=== PATIENT | female | born 1970 | race Caucasian/White ===

== ENCOUNTER 2018-04-12 05:45 | Day surgery (SDC) | payer OTHER ==
[2018-04-11 12:43] VITALS: BMI 24.2
[2018-04-12] MEDS ORDERED: Ciprofloxacin 0.2% Otic ONE (06:54)
[2018-04-12] MEDS ORDERED: Lidocaine 1% w/Epinephrine 1:100K 30 ML VIAL ONE (08:51)
[2018-04-12] MEDS ORDERED: Fentanyl 100 MCG/2 ML VIAL ONE (09:47)
[2018-04-12] MEDS ORDERED: Hydrocodone-Acetamin 15 ML UDCUP ONE (12:35)
[2018-04-12] MEDS ORDERED: Lidocaine 1% PF 5 ML VIAL ONE (12:36)
[2018-04-12] MEDS ORDERED: Ondansetron HCl/PF 4 MG/2 ML Vial ONE (12:36)
[2018-04-12] MEDS ORDERED: PROPOFOL 200 MG/20 ML VIAL ONE (12:36)
--- NOTE | 2018-04-13 10:47 | OP ---
DATE OF PROCEDURE: 04/12/2018 PREOPERATIVE DIAGNOSES: 1. Right tympanic membrane perforation. 2. Right conductive hearing loss. POSTOPERATIVE DIAGNOSES: 1. Right tympanic membrane perforation. 2. Right conductive hearing loss. PROCEDURES: Right fat graft myringoplasty. SURGEON: Misael Vázquez M.D. ESTIMATED BLOOD LOSS: 0 mL. COMPLICATIONS: None. ANESTHESIA: LMA. PROCEDURE: The patient was taken to the operating room. LMA anesthesia was obtained. The right ear was then prepped and draped in standard surgical fashion. The operating microscope was brought in t he field. A 20% posterior central perforation was visualized, middle ear mucosa was noted to be heal thy today. The edges of the perforation were rimmed with a Castillo needle and straight cup forceps. F ollowing this, a small incision was made in the posterior aspect of the right earlobe and an approxim ately 1 cm piece of fat was harvested. The wound was then closed using gut stitches. The fat was th en placed in a dumbbell-type fashion within the tympanic membrane perforation. The patient tolerated the procedure well.
== END 2018-04-12 13:03 | disposition home or self-care (01) ==
LOC: SDC 05:45
PROVIDERS: ATTEND Otolaryngology Plastic Surgery within the Head & Neck
PROC: 09U707Z Supplement Right Tympanic Membrane with Autologous Tissue Substitute, Open Approach (ICD-10-PCS; principal; 2018-04-12)
DX: H72.91 Unspecified perforation of tympanic membrane, right ear (principal); H90.2 Conductive hearing loss, unspecified; G40.909 Epilepsy, unspecified, not intractable, without status epilepticus; G43.909 Migraine, unspecified, not intractable, without status migrainosus; Z87.891 Personal history of nicotine dependence; Z79.899 Other long term (current) drug therapy
CPT/HCPCS: J2001; J2405; J2704; J3010

== ENCOUNTER 2019-09-06 09:20 | Outpatient (CLI) | payer OTHER | END 2019-09-06 09:21 | disposition home or self-care (01) | LOC: CP 09:20 | PROVIDERS: ATTEND Family Medicine | DX: R06.09 Other forms of dyspnea (principal) | CPT/HCPCS: 94060; 94727; 94729 ==